=== PATIENT | female | born 1975 | race Two or more races ===

== ENCOUNTER 2025-04-13 06:50 | Day surgery (SDC) | payer MEDICAID, SELFPAY ==
[2025-04-12 12:45] LABS: HCG Qualitative,Urine Negative
[2025-04-12 14:14] VITALS: BMI 19.3
[2025-04-13] VITALS (14 sets, daily range): BP systolic 110–149; BP diastolic 74–94; PULSE 84–113; RESP 9–22; TEMP 36.9–37.1; O2SAT 98–100; BMI 20.9
[2025-04-13] MEDS: RINGERS LACTATED 1000 ML 1,000 ML 60 ML IV (09:53)
== END 2025-04-13 11:55 | disposition home or self-care (01) ==
PROVIDERS: PCP Physician Assistant; Referring Provider Specialist; Visit Provider Specialist
PROC: 0DJD8ZZ Inspection of Lower Intestinal Tract, Via Natural or Artificial Opening Endoscopic (ICD-10-PCS; CPT 45378; principal; 2025-04-13 09:15)
DX: Z12.11 Encounter for screening for malignant neoplasm of colon (principal); K64.9 Unspecified hemorrhoids; K59.01 Slow transit constipation
CPT/HCPCS: 45378; 81025; A4649; J1200; J2250; J3010; J7120